=== PATIENT | male | born 1965 ===

== ENCOUNTER 2017-09-04 18:43 | Emergency (ER) | payer OTHER ==
[2017-09-04 18:57] VITALS: BMI 25.8
[2017-09-04 19:00] VITALS: O2SAT 100
[2017-09-04] MEDS ORDERED: Tdap Vaccine 0.5 ml Vial (10-64 yrs) IM ONE ×2 (20:00→20:26)
--- NOTE | 2017-09-04 20:08 | ED PDOC ---
HPI: Skin/Bite Injury Time Seen by Provider: 09/04/17 19:09 Chief Complaint (Nursing): Abnormal Skin Integrity Chief Complaint (Provider): Poison robyn rash History Per: Patient History/Exam Limitations: no limitations Onset/Duration Of Symptoms: Days (x4) Current Symptoms Are (Timing): Still Present Additional Complaint(s): 51 year old male presented to ED for evaluation of poison robyn rash and itching on bilateral upper extremities and neck with onset of Wednesday. Patient reports he has been applying over the counter remedies and took benadryl at 13: 00 today without relief. He states he has had a similar rash before but it was not as bad. He denies fever. No other medical complaints. Tetanus is out of date. PCP: none provided Past Medical History Reviewed: Historical Data, Nursing Documentation, Vital Signs Vital Signs: Last Vital Signs Temp 98 F 09/04/17 22:58 Pulse 59 L 09/04/17 22:58 Resp 18 09/04/17 22:58 BP 156/106 H 09/04/17 22:58 Pulse Ox 100 09/04/17 22:58 - Medical History PMH: No Chronic Diseases - Surgical History Other surgeries: Right wrist and right ankle procedure - Family History Family History: States: Unknown Family Hx - Social History Current smoker - smoking cessation education provided: No Alcohol: Occasional Drugs: Denies - Home Medications Home Medications: Ambulatory Orders Medication Instructions Recorded DiphenhydrAMINE [Benadryl] 50 mg PO Q6 #20 cap 09/04/17 Famotidine [Pepcid] 40 mg PO DAILY #5 tablet 09/04/17 Prednisone [Deltasone] 40 mg PO DAILY #10 tablet 09/04/17 - Allergies Allergies/Adverse Reactions: Allergies Allergy/AdvReac Type Severity Reaction Status Date / Time No Known Allergies Allergy Verified 09/04/17 19:59 Review of Systems ROS Statement: Except As Marked, All Systems Reviewed And Found Negative Constitutional: Negative for: Fever Skin: Positive for: Rash (poison robyn rash) Physical Exam - Reviewed Nursing Documentation Reviewed: Yes Vital Signs Reviewed: Yes - Physical Exam Comments: GENERAL APPEARANCE: Patient is awake, alert, oriented x 3, in no acute distress. Resting comfortably. SKIN: Erythematous, poison robyn like rash with crusting and excoriations to bilateral upper extremities and neck. No evidence of cellulitis or infection. NECK: Supple, FROM ENT: Mucus membranes moist. Airway patent, (-) stridor CHEST AND RESPIRATORY: (-) retractions, (-) rales, (-) rhonchi, (-) wheezes; breath sounds equal bilaterally. Speaking in full sentences, respirations even and nonlabored. HEART AND CARDIOVASCULAR: (-) irregularity; (-) murmur, (-) gallop. EXTREMITIES: (-) deformity NEURO AND PSYCH: Mental status as above; (-) focal findings. Speech clear, gait steady. (-) facial asymmetry (-) aphasia. - ECG O2 Sat by Pulse Oximetry: 100 (RA) Pulse Ox Interpretation: Normal Medical Decision Making Medical Decision Making: Initial Impression: poison robyn dermatitis Initial Plan: Tetanus 0.5ml IM Diphenhydramine 50mg PO Pepcid 40mg PO Methylprednisolone 125mg IM 2150 Repeat HR: 58 Repeat BP: 156/106 Patient states he has white coat syndrome and no history of HTN. Patient has no complaints relevant to his BP reading at this time, including but not limited to chest pain, SOB, cough, dyspnea, headache, dizziness, visual changes. Follow up stressed with PMD for further evaluation of BP reading. On re-evaluation, patient reports improvement of symptoms. On exam, patient remains AAOx3, in no acute distress. On exam, neck is supple, lungs CTA, cardiac RRR, neuro exam shows no focal findings. Diagnostic results d/w the patient in great detail. Dx of poison robyn dermatitis , pruritis d/w the patient. Based on history, exam and diagnostic results plan will be for discharge and outpatient follow up. Advised to follow up with primary care physician in 1-2 days without fail. Advised to take medication as prescribed. Return to the emergency room at any time for any new or worsening symptoms. Patient states he fully agrees with and understands discharge instructions. States that he agrees with the plan and disposition. Verbalized and repeated discharge instructions and plan. I have given the patient opportunity to ask any additional questions. Scribe Attestation: Documented by Yaakov Jj acting as a scribe for Dorota ASENCIO. Provider Scribe Attestation: All medical record entries made by the Scribe were at my direction and personally dictated by me. I have reviewed the chart and agree that the record accurately reflects my personal performance of the history, physical exam, medical decision making, and the department course for this patient. I have also personally directed, reviewed, and agree with the discharge instructions and disposition. Disposition - Clinical Impression Clinical Impression: Poison robyn dermatitis, Pruritic condition - Patient ED Disposition Is Patient to be Admitted: No Counseled Patient/Family Regarding: Diagnosis, Need For Followup, Rx Given - Disposition Referrals: [facility] [Outside] Disposition: Routine/Home Disposition Time: 21:55 Condition: STABLE Additional Instructions: FOLLOW UP WITH CLINIC IN 1-2 DAYS WITHOUT FAIL RETURN TO ED WITH ANY NEW OR WORSENING SYMPTOMS TAKE MEDICATION PRESCRIBED Prescriptions: DiphenhydrAMINE [Benadryl] 50 mg PO Q6 #20 cap Famotidine [Pepcid] 40 mg PO DAILY #5 tablet Prednisone [Deltasone] 40 mg PO DAILY #10 tablet Instructions: Poison Robyn, Itchy Skin Forms: [employer] (Guatemalan) Print Language: MAURITANIAN - POA Present On Arrival: None
[2017-09-04 22:59] VITALS: BP 156/106; PULSE 59; RESP 18; TEMP 98
== END 2017-09-04 22:59 | disposition home or self-care (01) ==
LOC: H.ER 18:43
DX: L23.7 Allergic contact dermatitis due to plants, except food (principal); L29.9 Pruritus, unspecified; Z23 Encounter for immunization
CPT/HCPCS: 90471; 90715; 96372; 99282; J2930

== ENCOUNTER 2017-09-12 12:05 | Emergency (ER) | payer OTHER ==
[2017-09-12 12:05] VITALS: BMI 25.8
[2017-09-12 12:15] VITALS: PULSE 58; RESP 16; TEMP 98.1; O2SAT 99
--- NOTE | 2017-09-12 13:09 | ED PDOC ---
HPI: Skin/Bite Injury Time Seen by Provider: 09/12/17 12:17 Chief Complaint (Nursing): Abnormal Skin Integrity Chief Complaint (Provider): rASH History Per: Patient Onset/Duration Of Symptoms: Days Current Symptoms Are (Timing): Still Present Location Of Injury: Right: Forearm, Left: Forearm Quality Of Symptoms: Itching, Swollen Additional Complaint(s): 51 year old male presents to the emergency department complaining of a swellng, redness and itchy rash to bilateral forearms. Patient states that his symptoms began after he came into contact with poison robyn 2 weeks ago. He reports when he was first exposed he was seen here in [place] ED and prescribed 5 day course of steroids. Patient states that after completing the course of steroids symptoms did improved but have since returned. Patient took last dose of steroid 4 days ago and since then has noticed increased itching, redness and swelling. Denies fever or chills. He denies any re-exposure to poison robyn since original exposure. PMD: [employer] Past Medical History Reviewed: Historical Data, Nursing Documentation, Vital Signs Vital Signs: Last Vital Signs Temp 98.1 F 09/12/17 12:12 Pulse 58 L 09/12/17 12:12 Resp 16 09/12/17 12:12 BP 163/105 H 09/12/17 12:12 Pulse Ox 99 09/12/17 13:22 - Medical History PMH: No Chronic Diseases - Surgical History Other surgeries: Right arm and right leg fracture repair - Family History Family History: States: No Known Family Hx - Living Arrangements Living Arrangements: With Family - Social History Current smoker - smoking cessation education provided: No Ex-Smoker (has not smoked in the last 12 months): No Alcohol: Occasional Drugs: Denies - Home Medications Home Medications: Ambulatory Orders Medication Instructions Recorded DiphenhydrAMINE [Benadryl] 50 mg PO Q6 #20 cap 09/04/17 Famotidine [Pepcid] 40 mg PO DAILY #5 tablet 09/04/17 Prednisone [Deltasone] 40 mg PO DAILY #10 tablet 09/04/17 Clindamycin [Cleocin] 300 mg PO QID #28 cap 09/12/17 Diphenhydramine HCl/Zinc Acet 1 gm TP Q6H PRN #1 tube 09/12/17 [Benadryl Itch Stopping Crm] Loratadine [Claritin] 10 mg PO DAILY #30 tab 09/12/17 predniSONE [predniSONE Tab] 10 mg PO ASDIR #43 tab 09/12/17 - Allergies Allergies/Adverse Reactions: Allergies Allergy/AdvReac Type Severity Reaction Status Date / Time No Known Allergies Allergy Verified 09/12/17 12:12 Review of Systems ROS Statement: Except As Marked, All Systems Reviewed And Found Negative Constitutional: Negative for: Fever, Chills Skin: Positive for: Rash (swollen and itchy rash to bilateral arms) Physical Exam - Reviewed Nursing Documentation Reviewed: Yes Vital Signs Reviewed: Yes - Physical Exam Appears: Positive for: Well, Non-toxic, No Acute Distress Skin: Positive for: Warm, Dry, Rash (urticarial rash to bilateral forearms with mild erythema and warmth concern for superimposed cellulitis, no pustular lesions) Eye Exam: Positive for: Normal appearance Cardiovascular/Chest: Positive for: Regular Rate, Rhythm Respiratory: Positive for: Normal Breath Sounds. Negative for: Rales, Rhonchi, Wheezing, Respiratory Distress Extremity: Negative for: Pedal Edema Neurologic/Psych: Positive for: Alert, Oriented - ECG O2 Sat by Pulse Oximetry: 99 (RA) Pulse Ox Interpretation: Normal Medical Decision Making Medical Decision Makin Initial Impression 51 year old male presenting with poison robyn dermatitis and cellulitis Initial Plan: * SOLU-medrol 125 mg IM Patient is medically stable and will be discharged home with rx 10 day prednisone taper, clindamycin, benadryl cream and claritin. Patient was instructed to follow-up with primary doctor or computer forensics investigator for any persistent symptoms. Diagnosis: Poison Robyn Dermatitis and Cellulitis Condition: stable Prescription: Clindamycin, Claritin, Benadryl Cream ---- Documented by Olga Noyola acting as a scribe for Cyn Montes PA-C. All medical record entries made by the Scribe were at my direction and personally dictated by me. I have reviewed the chart and agree that the record accurately reflects my personal performance of the history, physical exam, medical decision making, and the department course for this patient. I have also personally directed, reviewed, and agree with the discharge instructions and disposition. Disposition - Clinical Impression Clinical Impression: Poison robyn dermatitis, Cellulitis - Patient ED Disposition Is Patient to be Admitted: No Counseled Patient/Family Regarding: Diagnosis, Need For Followup, Rx Given - Disposition Referrals: Yuri Menjivar MD [Medical Doctor] - Disposition: Routine/Home Disposition Time: 13:32 Condition: STABLE Additional Instructions: TAKE ALL RX MEDS DIRECTED. TAKE OVER THE COUNTER ADVIL NEEDED FOR PAIN. FOLLOW UP WITH PRIMARY CARE DOCTOR OR WITH NUTRITION COUNSELOR FOR ANY PERSISTENT SYMPTOMS. Prescriptions: Clindamycin [Cleocin] 300 mg PO QID #28 cap Diphenhydramine HCl/Zinc Acet [Benadryl Itch Stopping Crm] 1 gm TP Q6H PRN #1 tube PRN Reason: Itching / Pruritus Loratadine [Claritin] 10 mg PO DAILY #30 tab predniSONE [predniSONE Tab] 10 mg PO ASDIR #43 tab Instructions: Poison Robyn, Poison [place], Poison [place] (DC), Cellulitis (Skin Infection), Adult (DC) Forms: [employer] (Thai) - POA Present On Arrival: None
[2017-09-12 13:44] VITALS: BP 135/96
== END 2017-09-12 13:43 | disposition home or self-care (01) ==
LOC: H.ER 12:05
DX: L23.7 Allergic contact dermatitis due to plants, except food (principal); L03.90 Cellulitis, unspecified
CPT/HCPCS: 96374; 99282; J2930